=== PATIENT | male | born 1970 | race Caucasian/White ===

== ENCOUNTER → 2016-12-12 | Outpatient (CLI) | payer MEDICARE, OTHER | LOC: KOH-I 16:42 | DX: M54.2 Cervicalgia (principal); M79.601 Pain in right arm; M47.812 Spondylosis without myelopathy or radiculopathy, cervical region | CPT/HCPCS: 72050 ==

== ENCOUNTER → 2016-12-13 | Outpatient (CLI) | payer MEDICARE, OTHER | LOC: EMI 14:46 | DX: M54.2 Cervicalgia (principal); M79.601 Pain in right arm; M99.71 Connective tissue and disc stenosis of intervertebral foramina of cervical region; M47.812 Spondylosis without myelopathy or radiculopathy, cervical region | CPT/HCPCS: 72141 ==

== ENCOUNTER 2021-01-24 10:33 | Emergency (ER) | payer MEDICARE, OTHER ==
[~2021-01-24 10:33] MED LIST: IBUPROFEN800 MG PO
[2021-01-24] MEDS ORDERED: IBUPROFEN600 MG PO (14:55)
== END 2021-01-24 15:10 | disposition home or self-care (01) ==
LOC: ER1 10:33
DX: S92.151A Displaced avulsion fracture (chip fracture) of right talus, initial encounter for closed fracture (principal); I10 Essential (primary) hypertension; Z88.0 Allergy status to penicillin; Z88.5 Allergy status to narcotic agent; Z88.8 Allergy status to other drugs, medicaments and biological substances; Z90.89 Acquired absence of other organs; F17.290 Nicotine dependence, other tobacco product, uncomplicated; X50.1XXA Overexertion from prolonged static or awkward postures, initial encounter; Y92.009 Unspecified place in unspecified non-institutional (private) residence as the place of occurrence of the external cause
CPT/HCPCS: 73610; 99283; J2930

== ENCOUNTER 2021-02-22 19:26 | Emergency (ER) | payer MEDICARE, OTHER ==
[~2021-02-22 19:26] MED LIST changes: +IBUPROFEN600 MG PO
[2021-02-22 21:04] LABS: HEMOGLOBIN 15.7 gm/dl (14.0-17.5); RED BLOOD COUNT 5.13 M/UL (4.20-5.50); WHITE BLOOD COUNT 10.3 K/UL (4.5-11.0)
[2021-02-22 21:23] LABS: BUN/CREATININE RATIO 14 (0-10)
== END 2021-02-23 01:22 | disposition left against medical advice (07) ==
LOC: ER1 19:26
PROVIDERS: Physician Assistant
DX: R10.11 Right upper quadrant pain (principal); E78.5 Hyperlipidemia, unspecified; E11.9 Type 2 diabetes mellitus without complications; I10 Essential (primary) hypertension; F17.290 Nicotine dependence, other tobacco product, uncomplicated; Z90.89 Acquired absence of other organs; Z88.0 Allergy status to penicillin; Z88.1 Allergy status to other antibiotic agents; Z88.6 Allergy status to analgesic agent; Z79.84 Long term (current) use of oral hypoglycemic drugs
CPT/HCPCS: 80053; 81001; 83605; 83690; 85025; 87086; 99284; Q9967

== ENCOUNTER → 2021-06-07 | Outpatient (CLI) | payer MEDICARE, OTHER | LOC: HEART 5 05-31 08:30 | DX: R00.0 Tachycardia, unspecified (principal) ==